=== PATIENT | male | born 1980 | race Caucasian/White ===

== ENCOUNTER 2025-01-09 10:57 | Emergency (ER) | payer OTHER, SELFPAY ==
[2025-01-09 11:23] VITALS: BP 115/70; PULSE 117; RESP 20; TEMP 36.9; O2SAT 95
--- NOTE | 2025-01-09 11:30 | RT.EKG_ITS ---
APPROVED REPORT Exam: Resting ECG Reason for Exam: Chest pain Patient Location: E HR:97 bpm ECG Measurements Heart Rate 97 AXIS IL 163 P 76 QRSd 76 QRS 66 QT 332 T 62 QTc 422 Conclusion Sinus rhythm...normal P axis, V-rate 60- 99 ST elev, probable normal early repol pattern...ST elevation, age<55 No STEMI
--- NOTE | 2025-01-09 11:30 | DI.RAD_ITS ---
Exam(s) XR CHEST 2V PA LATERAL EXAM: XR CHEST 2V PA LATERAL CLINICAL HISTORY: Chest pain. TECHNIQUE: 2D digital imaging was performed. COMPARISON: No exams were available for comparison FINDINGS: 2 views: Heart size is normal. The mediastinum is not widened. Left lung is clear. However, there is a prominent area of infiltrate in the right lower lobe. No ob vious pleural effusions. IMPRESSION: Prominent right lower lobe infiltrate. No pleural effusions DATA REPOSITORY: RADIATION DOSE DELIVERED:
--- NOTE | 2025-01-09 12:07 | ED.GENADUL_ITS ---
Discharge Plan Disposition Patient Disposition: Home Discharge Details Clinical Impression: Community acquired pneumonia of right lung Primary Care Provider: Unknown,Unknown ED Provider: Alec Godoy [place] Meds and New Rx's Prescriptions: New amoxicillin 500 mg capsule 500 mg PO BID Qty: 10 0RF doxycycline hyclate 100 mg tablet 100 mg PO BID Qty: 20 0RF Continued acetaminophen [Tylenol] 325 MG tablet 650 mg PO PRN PRN insulin aspart U-100 [Novolog FlexPen U-100 Insulin] 300 UNITS/3 ML insulin pen 1 units Sub-Q PRN PRNQty: 10 0RF Patient Comments: has run Rx Instructions: 1 units per 25 mg/dL rise in glucose > 120 mg/dL (in addition to meal coverage) insulin aspart U-100 [Novolog FlexPen U-100 Insulin] 300 UNITS/3 ML insulin pen 10 units Sub-Q 0800,1200,1700 Qty: 1 0RF Levemir FlexTouch U100 Insulin 300 UNITS/3 ML insulin pen 40 units Sub-Q HS Qty: 1 0RF Levemir FlexTouch U100 Insulin 300 UNITS/3 ML insulin pen 15 units Sub-Q QAM Qty: 10 0RF Rx Instructions: to be taken QAM in addition to nightime levemir Ozempic 1 mg/dose (4 mg/3 mL) pen injector 1 mg SUBCUT .weekly Patient Comments: INJECT 1MG SUBCUTANEOUSLY ONCE A WEEK Discharge Instructions Instructions: Community-acquired pneumonia in adults Additional Instructions: You are seen in the emergency department for your cough. You did not have signs of a diabetic emergency but were found to have a right lower lobe pneumonia for which you are receiving antibiotics that you should take as directed. Please follow-up with your primary care provider. If you cannot eat or drink please return to the emergency department. HPI General Date/Time Provider Initiated Documentation: 01/09/25 11:37 . HPI Narrative: MDM This is a tachycardic normothermic diabetic male with flulike symptoms for the past several days associate with nausea and vomiting concerning for viral URI versus DKA. No pain or proportion to suggest necrotizing soft tissue infection. Patient is otherwise well-appearing so my suspicion is low for sepsis I did not order broad-spectrum antibiotics nor check a lactate. Patient never had DVT nor PE however he is tachycardic and complaining of chest pain so we will send a D- dimer. Will send a venous blood gas to assess for DKA. Soft nontender abdomen so not concern for appendicitis. No dysuria no frequency to suggest UTI. No left lower quadrant pain to suggest diverticulitis. No right upper quadrant pain to suggest acute cholecystitis. Patient is not an alcoholic to suggest increased risk for withdrawal. Will obtain chest x-ray and reassess. 4:58 PM Return to patient care. Patient was found to have pneumonia. He tolerated p.o. His tachycardia resolved. He received ceftriaxone doxycycline emergency department. I discharged on amoxicillin and doxycycline. We discussed that he should return to the emergency department if he developed any worsening shortness of breath. His labs are not consistent with DKA. He had a D-dimer that was less than 1000 and based on years criteria no indication for CT angiogram. He did have a mild bump in his creatinine similar to prior. Given that he had had creatinines up to 1.1 in the past not meeting criteria for DENA. His troponins were reassuring against ACS. Chronic conditions affecting the care of the patient: Diabetes History obtained from an outside historian: N/A External record review: N/A Diagnostic interpretations performed by me: Per my independent interpretation chest x-ray shows: Right lower lobe infiltrate. Per my independent interpretation EKG shows: Narrow complex normal sinus rhythm at a rate of 97. Mild anterior ST segment elevation in V2. ]Medications: Ceftriaxone doxycycline. HPI This is a diabetic 44-year-old male right emergency department via private vehicle from urgent care in setting of flulike symptoms for the past 5 days. Patient notes his blood glucose numbers have been greater than 300 and fingersticks. He feels fatigued. He has been nauseous and vomiting. He denies fevers chest pain shortness of breath and abdominal pain. He has had a cough. Exam General: Well-appearing in no acute distress speaking in complete sentences. Head: Normocephalic, atraumatic. Eye: Extraocular eye movements intact. No conjunctival injection. No scleral icterus. Ear, nose, mouth, throat: Grossly normal inspection. Normal voice, handling secretions normally. Neck: Trachea midline. Cardiovascular: Well-perfused distal extremities. Rapid regular rate. Respiratory: Nonlabored respiration. Clear lungs bilaterally. Gastrointestinal: Nondistended abdomen. Soft nontender. Musculoskeletal: No edema. Moving all 4 extremities spontaneously. Skin: Normal for age and race, grossly normal temperature and turgor. No acute rash. Neurologic: Alert and appropriate, no apparent acute deficits. Psychiatric: Mood and manner are appropriate. Grooming and personal hygiene are appropriate. Related Data Home Medications ?Medication ?Instructions ?Recorded ?Confirmed acetaminophen 325 mg tablet 650 mg PO PRN PRN 11/28/13 01/09/25 (Tylenol) insulin aspart U-100 100 unit/mL 1 units subcut PRN PRN #10 mL 02/28/15 01/09/25 (3 mL) subcutaneous pen (Novolog FlexPen U-100 Insulin aspart) insulin aspart U-100 100 unit/mL 10 units subcut 0800,1200,1700 ##1 03/22/16 01/09/25 (3 mL) subcutaneous pen (Novolog FlexPen U-100 Insulin aspart) insulin detemir U-100 100 unit/mL 15 units subcut QAM #10 mL 03/22/16 01/09/25 (3 mL) subcutaneous pen (Levemir FlexTouch U-100 Insulin) insulin detemir U-100 100 unit/mL 40 units subcut HS ##1 03/22/16 01/09/25 (3 mL) subcutaneous pen (Levemir FlexTouch U-100 Insulin) amoxicillin 500 mg capsule 500 mg PO BID #10 caps 01/09/25 doxycycline hyclate 100 mg tablet 100 mg PO BID #20 tabs 01/09/25 semaglutide 1 mg/dose (4 mg/3 mL) 1 mg subcut .weekly 01/09/25 01/09/25 subcutaneous pen injector (Ozempic) Previous Rx's ?Medication ?Instructions ?Recorded insulin aspart U-100 100 unit/mL 1 units subcut PRN PRN #10 mL 02/28/15 (3 mL) subcutaneous pen (Novolog FlexPen U-100 Insulin aspart) insulin aspart U-100 100 unit/mL 10 units subcut 0800,1200,1700 ##1 03/22/16 (3 mL) subcutaneous pen (Novolog FlexPen U-100 Insulin aspart) insulin detemir U-100 100 unit/mL 15 units subcut QAM #10 mL 03/22/16 (3 mL) subcutaneous pen (Levemir FlexTouch U-100 Insulin) insulin detemir U-100 100 unit/mL 40 units subcut HS ##1 03/22/16 (3 mL) subcutaneous pen (Levemir FlexTouch U-100 Insulin) amoxicillin 500 mg capsule 500 mg PO BID #10 caps 01/09/25 doxycycline hyclate 100 mg tablet 100 mg PO BID #20 tabs 01/09/25 Allergies Allergy/AdvReac Type Severity Reaction Status Date / Time latex Allergy Severe Skin Rash Unverified 01/09/25 11:32 lisinopril Allergy Severe Anaphylaxsi Unverified 01/09/25 11:32 s Bleach (Sodium Hypochlorite) Allergy Mild Skin Rash Unverified 01/09/25 11:32 General Stated Complaint: [facility] PRATIMA: 3 Course Vital Signs Vital signs: Vital Signs Temperature 36.9 C 01/09/25 11:23 Pulse 117 H 01/09/25 11:23 Respiratory Rate 20 01/09/25 11:23 Blood Pressure 115/70 01/09/25 11:23 Pulse Oximetry 95 01/09/25 11:23 Temperature 36.9 C 01/09/25 11:23 Temperature Source Oral 01/09/25 11:23 Pulse 117 H 01/09/25 11:23 Respiratory Rate 20 01/09/25 11:23 Blood Pressure 115/70 01/09/25 11:23 Blood Pressure Position Sitting 01/09/25 11:23 Pulse Oximetry 95 01/09/25 11:23 Oxygen Delivery Method Room Air 01/09/25 11:23 Oxygen Flow Rate 0 01/09/25 11:23 Medical Decision Making Quality:SDOH Health Related Social Needs: No Data to Display PFSH All Active Problems (Updated 01/09/25 @ 14:16 by Alec Godoy MD) Community acquired pneumonia of right lung (Acute) DKA, type 1 (Acute) Prerenal azotemia (Acute 02/27/15) Dehydration (Acute 02/27/15) Diabetic keto-acidosis (Acute 02/27/15) Gastroesophageal reflux disease (Active) Bipolar disorder (Active) Diabetes mellitus type 2 (Active) Recent diagnosis of diabetes presumed type II, presenting with hyperosmolar, nonketotic hyperglycemia Angioedema (Active 02/03/13) Due to Lisinopril On admission, hand swelling and puritis with differential dx of cellulitis versus angioedema from Lisinopril versus latex allergy. Social History Smoking/Tobacco Use Status: Current every day Smoking risk assessment performed?: Yes Drug use: Occasionally Substance use type: marijuana
[2025-01-09 12:22] LABS: BE (Venous) 3 mmol/L (-2-3); HCO3 (Venous) 28 mmol/L (23-28); O2 Sat (Venous) 33 %; TCO2 (Venous) 25 mmol/L (24-29); pCO2 (Venous) 46 mmHg (41-51); pO2 (Venous) 20 mmHg
[2025-01-09 12:23] LABS: HCT 42.2 % (40.0-50.0); HGB 14.6 g/dL (13.5-17.5); MCH 30.4 pg (27.0-33.0); MCHC 34.6 % (32.0-36.0); MCV 88 fL (80-95); MPV 9.6 fL (8.0-11.0); Platelet Count 211 10^3/uL (130-400); RBC 4.81 10^6/uL (4.36-5.78); RDW 12.3 % (11.8-14.1); WBC 17.23 10^3/uL (4.4-10.8)
[2025-01-09 12:43] LABS: ALT 23 U/L (16-63); AST 10 U/L (15-37); Albumin 3.6 g/dL (3.4-5.0); Alkaline Phosphatase 67 U/L (46-116); Anion Gap 6.7 mmol/L (3-11); BUN 17 mg/dL (7-18); Bilirubin, Total 0.75 mg/dL (0.2-1.0); CO2 30.3 mmol/L (21.0-32.0); CREATININE 1.4 mg/dL (0.70-1.30); Calcium 8.7 mg/dL (8.5-10.1); Chloride 94 mmol/L (98-107); Estimated GFR 63.56 (mL/min/1.73m2); Glucose 334 mg/dL (74-106); Lipase 14 U/L (<78); Potassium 4.2 mmol/L (3.5-5.1); Sodium 131 mmol/L (136-145); Total Protein 7.4 g/dL (6.4-8.2); Troponin I 4 ng/L (<or=76)
[2025-01-09 12:45] LABS: Absolute Lymphocyte Count 0.34 10^3/uL (1.2-3.4); Absolute Monocyte Count 0.34 10^3/uL (0.1-0.8); Absolute Neutrophil Count 16.37 10^3/uL (1.2-6.7); Bands % 8 %; Diff Comment Manual Differential; Metamyelocytes % 1; RBC Morphology Normal
[2025-01-09 12:51] LABS: D-Dimer 673 ng/mlFEU (<500)
[2025-01-09] MEDS: cefTRIAXone 2 GM/50 ML BAG IVPB (13:17)
[2025-01-09] MEDS: Doxycycline Hyclate 100 MG CAP PO (13:18)
[2025-01-09] MEDS: Ondansetron 4 MG/2 ML VIAL IVP ×2 (13:19→13:53)
[2025-01-09] MEDS: Normal Saline 500 ML 1000 ML IV (13:24)
[2025-01-09 13:40] LABS: Troponin I < 4 ng/L (<or=76)
[2025-01-09 13:44] VITALS: PULSE 98
[2025-01-09 13:45] VITALS: BP 131/72; PULSE 98; PULSE 99; RESP 20; TEMP 36.9; O2SAT 96; O2SAT 98
[2025-01-09 14:46] VITALS: BP 129/71; PULSE 88; RESP 18; O2SAT 99
== END 2025-01-09 14:52 | disposition home or self-care (01) ==
PROVIDERS: Emergency Provider Emergency Medicine
DX: J18.9 Pneumonia, unspecified organism (principal); E11.9 Type 2 diabetes mellitus without complications; F17.200 Nicotine dependence, unspecified, uncomplicated; Z79.4 Long term (current) use of insulin; Z79.85 Long-term (current) use of injectable non-insulin antidiabetic drugs
CPT/HCPCS: 80053; 82805; 82962; 83690; 93005; 96365; 96375; 96376; 99285; 71046; 84484; 85025; 85379; 93010; J0696; J2405